=== PATIENT | female | born 1955 | race Caucasian/White ===

== ENCOUNTER 2020-03-22 08:32 | Outpatient (REF) | payer OTHER, SELFPAY ==
[2020-03-22 08:55] LABS: COVID-19 Test Negative (Negative)
== END 2020-03-22 08:33 | disposition home or self-care (01) ==
LOC: HO.LAB 08:32
PROVIDERS: Visit Provider Internal Medicine
DX: Z20.828 Contact with and (suspected) exposure to other viral communicable diseases (principal)
CPT/HCPCS: 87635

== ENCOUNTER 2020-03-27 06:12 | Outpatient (REF) | payer OTHER, SELFPAY ==
[2020-03-27 06:32] LABS: COVID-19 Test Negative (Negative)
== END 2020-03-27 06:13 | disposition home or self-care (01) ==
LOC: HO.LAB 06:12
PROVIDERS: Visit Provider Internal Medicine
DX: Z20.828 Contact with and (suspected) exposure to other viral communicable diseases (principal)
CPT/HCPCS: 87635